=== PATIENT | male | born 1970 | race Caucasian/White ===

== ENCOUNTER 2016-04-24 09:53 | Emergency (ER) | payer OTHER ==
[2016-04-24 11:00] VITALS: RESP 18
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
[2016-04-24] MEDS ORDERED: KETOROLAC 60 MG/2 ML VIAL IM STA (11:18)
--- NOTE | 2016-04-24 11:50 | XR ---
EXAMINATION TYPE: XR thoracic spine 2V DATE OF EXAM: 04/24/2016 11:44 AM CLINICAL HISTORY: Fall injury with mid back pain. TECHNIQUE: Frontal, lateral, and swimmer's view of thoracic spine are obtained. COMPARISON: None. FINDINGS: Thoracic spine show slight levoconvex scoliotic curvature centered in the upper to midthora cic spine without evidence of acute fracture or dislocation. Vertebral body heights and disc space h eights are preserved. Fairly moderate multilevel anterior and lateral spurring is seen in the lower t horacic spine. IMPRESSION: No acute fracture or dislocation is seen in the thoracic spine.
--- NOTE | 2016-04-24 11:53 | XR ---
EXAMINATION TYPE: XR ribs RT w pa chest xray DATE OF EXAM: 04/24/2016 11:44 AM CLINICAL HISTORY: Slip and fall injury with chest and right-sided rib pain. TECHNIQUE: Single frontal view of the chest is obtained. A frontal and oblique images of the right-si ded ribs are acquired. COMPARISON: Prior chest x-ray June 21, 2014 FINDINGS: There is new left basilar linear atelectasis. Right lung remains clear. No pleural effusi on or pneumothorax seen bilaterally The cardiac silhouette size is upper limits of normal on current study. The osseous structures are intact. Dedicated images of the right-sided ribs show no acute displaced fracture. Overlying soft tissue is u nremarkable. IMPRESSION: 1. No acute pulmonary process. 2. No acute displaced right-sided rib fractures are seen.
--- NOTE | 2016-04-24 12:55 | CT ---
EXAMINATION TYPE: CT thoracic spine wo con DATE OF EXAM: 04/24/2016 12:35 PM COMPARISON: Radiograph same day HISTORY: 45-year-old male complains of back pain post fall. TECHNIQUE: Contiguous axial scanning of the thoracic spine without IV contrast. Coronal and sagittal reconstructions performed. CT DLP: 1948.5 mGycm Automated exposure control for dose reduction was used. FINDINGS: Calcified granuloma posterior left lung base from prior granulomatous disease. There is moderate endplate spondylosis in the lower thoracic spine with associated moderate degenerat italo disc disease. Vertebral body heights are preserved and alignment is maintained. No acute fracture of the thoracic spine. No evidence of large focal disc herniation seen. Changes appear to result in moderate to severe neuroforaminal stenoses on both sides at T7-T8 and T8- T9, sagittal image 20 on the right and images 29 and 30 on the left. IMPRESSION: 1. MODERATE DEGENERATIVE DISC DISEASE LOWER THORACIC SPINE WITH ASSOCIATED MODERATE ENDPLATE SPONDYLO SIS. 2. THERE APPEARS TO BE MODERATE TO SEVERE NARROWING OF THE BILATERAL NEUROFORAMINA AT T7-T8 AND T8-T9 . 3. NO VERTEBRAL COMPRESSION COLLAPSE OR MALALIGNMENT.
[2016-04-24] MEDS ORDERED: HYDROcodone/APAP 5-325MG 1 EACH TAB PO STA (13:18)
--- NOTE | 2016-04-24 13:24 | XR ---
EXAMINATION TYPE: XR shoulder complete RT DATE OF EXAM: 04/24/2016 1:19 PM CLINICAL HISTORY: Right shoulder pain after falling and lifting injury yesterday. TECHNIQUE: Three views of the right shoulder are obtained. COMPARISON: None. FINDINGS: Transscapular view is suboptimal due to overlying artifact. There is no acute fracture/disl ocation evident in the right shoulder. The acromioclavicular and glenohumeral joint spaces appear wi thin normal limits. The visualized ribs are intact and unremarkable. IMPRESSION: There is no acute fracture or dislocation in the right shoulder.
[2016-04-24 13:51] VITALS: BP 163/84; PULSE 81; TEMP 97.7
== END 2016-04-24 13:49 | disposition home or self-care (01) ==
LOC: EC 09:53
DX: S22.31XA Fracture of one rib, right side, initial encounter for closed fracture (principal); M25.511 Pain in right shoulder; M54.9 Dorsalgia, unspecified; M47.9 Spondylosis, unspecified; M48.04 Spinal stenosis, thoracic region; M51.34 Other intervertebral disc degeneration, thoracic region; F17.200 Nicotine dependence, unspecified, uncomplicated; Z89.022 Acquired absence of left finger(s); W01.0XXA Fall on same level from slipping, tripping and stumbling without subsequent striking against object, initial encounter
CPT/HCPCS: 71101; 72070; 73030; 72128; 99284; 96372; J1885

== ENCOUNTER → 2016-12-10 | Outpatient (CLI) | payer OTHER ==
[2016-12-10 12:28] LABS: Basophils % (A) 1 %; CH 32.8; CHCM 35.6; Eosinophils # (A) 0.1 k/uL (0-0.7); Eosinophils % (A) 1 %; HCT 46.1 % (39.0-53.0); HDW 2.53; HGB 16.9 gm/dL (13.0-17.5); Luc # (Auto) 0.14; Luc % (Auto) 3; Lymphocytes # (A) 1.6 k/uL (1.0-4.8); Lymphocytes % (A) 30 %; MCH 33.9 pg (25.0-35.0); MCHC 36.7 g/dL (31.0-37.0); MCV 92.4 fL (80.0-100.0); Mean Platelet Volume 7.2; Monocytes # (A) 0.5 k/uL (0-1.0); Monocytes % (A) 8 %; Neutrophils # (A) 3.1 k/uL (1.3-7.7); Neutrophils % (A) 57 %; RBC 4.99 m/uL (4.30-5.90); RDW 12.2 % (11.5-15.5); WBC 5.4 k/uL (3.8-10.6); WBC (Perox) 5.28
[2016-12-10 12:40] LABS: Bilirubin, Delta 0.4 mg/dL (0.0-0.2); Total Bilirubin 1.3 mg/dL (0.2-1.3); Total Protein 7.7 g/dL (6.3-8.2)
[2016-12-11 15:36] LABS: LOG HCV IU/mL 6.53 (<1.08)
== END | disposition home or self-care (01) ==
LOC: LABWHC1 11:37
PROVIDERS: ATTEND Physician Assistant
DX: B18.2 Chronic viral hepatitis C (principal)
CPT/HCPCS: 36415; 80076; 85025; 87522

== ENCOUNTER → 2017-04-15 | Outpatient (CLI) | payer OTHER ==
[2017-04-15 14:34] LABS: HCT 46.4 % (39.0-53.0); HGB 15.7 gm/dL (13.0-17.5); MCH 31.8 pg (25.0-35.0); MCHC 33.9 g/dL (31.0-37.0); Mean Platelet Volume 7.8; Platelet Count 187 k/uL (150-450); RBC 4.94 m/uL (4.30-5.90); WBC 5.1 k/uL (3.8-10.6)
[2017-04-15 14:55] LABS: Albumin 4.8 g/dL (3.5-5.0); Bilirubin, Delta 0.2 mg/dL (0.0-0.2); Bilirubin,Unconjugated 0.5 mg/dL (0.0-1.1); Total Bilirubin 0.7 mg/dL (0.2-1.3); Total Protein 7.7 g/dL (6.3-8.2)
[2017-04-17 09:37] LABS: Hepatits C Virus RNA DETECTED (Not detected)
== END | disposition home or self-care (01) ==
LOC: LABWHC1 14:08
PROVIDERS: ATTEND Physician Assistant
DX: B18.2 Chronic viral hepatitis C (principal)
CPT/HCPCS: 36415; 80076; 85027; 87522

== ENCOUNTER → 2017-04-21 | Outpatient (CLI) | payer OTHER | END | disposition home or self-care (01) | LOC: LABWHC1 09:24 | PROVIDERS: ATTEND Physician Assistant | DX: B18.2 Chronic viral hepatitis C (principal) | CPT/HCPCS: 36415; 82172; 82247; 82977; 83010; 83883; 84460 ==

== ENCOUNTER 2020-12-29 12:01 | Emergency (ER) | payer OTHER ==
[2020-12-29 12:39] VITALS: TEMP 98.3
[2020-12-29] MEDS ORDERED: MORPHINE SULFATE 4 MG/ML SYRINGE IM STA (13:13)
--- NOTE | 2020-12-29 13:47 | XR ---
EXAMINATION TYPE: XR cervical spine limited DATE OF EXAM: 12/29/2020 CLINICAL HISTORY: pain TECHNIQUE: 3 views of the cervical spine are submitted. COMPARISON: None. FINDINGS: There is satisfactory in alignment without evidence of acute fracture or dislocation. The pre-vertebral soft tissue appears within normal limits. Moderate degenerative narrowing and spondylo sis at C4-C6-7. The C1-C2 articulation is unremarkable on the open mouth view. IMPRESSION: No acute fracture or dislocation is seen in the cervical spine.
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
[2020-12-29] MEDS ORDERED: ORPHENADRINE 30 MG/ML 2 ML VIAL IM STA (14:00)
[2020-12-29] MEDS ORDERED: ACET/COD 300 MG/30 MG STARTER PACK 6 TAB BTL PO STA (14:13)
[2020-12-29 14:29] VITALS: BP 148/84; PULSE 82; RESP 18
== END 2020-12-29 14:28 | disposition home or self-care (01) ==
LOC: EC 12:01
DX: M54.2 Cervicalgia (principal); I10 Essential (primary) hypertension; K21.9 Gastro-esophageal reflux disease without esophagitis; M19.90 Unspecified osteoarthritis, unspecified site; F41.9 Anxiety disorder, unspecified; F32.9 Major depressive disorder, single episode, unspecified; F17.200 Nicotine dependence, unspecified, uncomplicated; F12.90 Cannabis use, unspecified, uncomplicated; Z86.73 Personal history of transient ischemic attack (TIA), and cerebral infarction without residual deficits
CPT/HCPCS: 99283; 96372 ×2; 72040; J2270; J2360

== ENCOUNTER 2022-07-18 18:41 | Emergency (ER) | payer OTHER ==
[2022-07-18 18:47] VITALS: RESP 16; TEMP 98
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
[2022-07-18] MEDS ORDERED: SODIUM CHLORIDE 0.9% 1,000 ML IV STA (21:11)
[2022-07-18 21:21] LABS: Basophils % (A) 0 %; Eosinophils # (A) 0.1 k/uL (0-0.7); Eosinophils % (A) 2 %; HCT 43.3 % (39.0-53.0); Lymphocytes # (A) 1.9 k/uL (1.0-4.8); Lymphocytes % (A) 37 %; MCHC 34.8 g/dL (31.0-37.0); MCV 92.1 fL (80.0-100.0); Mean Platelet Volume 7.3; Monocytes # (A) 0.3 k/uL (0-1.0); Monocytes % (A) 7 %; Neutrophils # (A) 2.6 k/uL (1.3-7.7); Neutrophils % (A) 52 %; Platelet Count 189 k/uL (150-450); RDW 12.5 % (11.5-15.5)
[2022-07-18 21:29] LABS: Sodium 136 mmol/L (137-145)
[2022-07-18 21:30] LABS: ALT 22 U/L (4-49); AST 21 U/L (17-59); African American GFR (CKD) >90 (>60 ml/min/1.73 sqM); Albumin 4.5 g/dL (3.5-5.0); Alkaline Phosphatase 80 U/L (38-126); Amylase 46 U/L (30-110); Anion Gap 8 mmol/L; Blood Urea Nitrogen 23 mg/dL (9-20); Calcium 8.9 mg/dL (8.4-10.2); Carbon Dioxide 24 mmol/L (22-30); Chloride 104 mmol/L (98-107); Glucose 87 mg/dL (74-99); Lipase 81 U/L (23-300); Non-African American GFR(CKD) >90 (>60 ml/min/1.73 sqM); Total Bilirubin 0.7 mg/dL (0.2-1.3); Total Protein 7.2 g/dL (6.3-8.2)
[2022-07-18 21:55] LABS: Appearance,Urine Clear (Clear); Bilirubin,Urine Negative (Negative); Blood,Urine Negative (Negative); Color,Urine Yellow; Glucose,Urine (UA) Negative (Negative); Ketones,Urine Negative (Negative); Leukocyte Esterase,Urine Negative (Negative); Nitrite,Urine Negative (Negative); PH, Urine 5.5 (5.0-8.0); Protein,Urine Trace (Negative); Specific Gravity,Urine 1.031 (1.001-1.035); Urobilinogen,Urine <2.0 mg/dL (<2.0)
[2022-07-18 22:01] LABS: INR 0.9 (<1.2); Partial Thromboplastin Time 25.7 sec (22.0-30.0); Prothrombin Time 10.1 sec (9.0-12.0)
--- NOTE | 2022-07-18 22:21 | CT ---
EXAMINATION TYPE: CT brain wo con DATE OF EXAM: 07/18/2022 HISTORY: dizziness CT DLP: 1166.4 mGycm. Automated Exposure Control for Dose Reduction was Utilized. TECHNIQUE: CT scan of the head is performed without contrast. COMPARISON: None. FINDINGS: There is no acute intracranial hemorrhage or midline shift identified. No mass or mass effe ct. No definite new attenuation defect. The globes are intact and the visualized sinuses are clear. IMPRESSION: No acute CT process.
--- NOTE | 2022-07-18 22:26 | CT ---
EXAMINATION TYPE: CT abdomen pelvis w con DATE OF EXAM: 07/18/2022 COMPARISON: None HISTORY: abd pain CT DLP: 2162.8 mGycm, Automated Exposure Control for Dose Reduction was Utilized. CONTRAST: CT scan of the abdomen and pelvis is performed with oral and with IV Contrast, patient inje cted with 100 mL of Isovue 300. FINDINGS: LUNG BASES: No acute process. LIVER/GB: No significant abnormality is appreciated. PANCREAS: No significant abnormality is seen. SPLEEN: No significant abnormality is seen. ADRENALS: No significant abnormality is seen. KIDNEYS: No significant abnormality is seen. BOWEL: No dilated bowel loops or inflammatory change. Appendix is normal. Diverticulosis noted. Colon ic stool volume within normal limits. PERITONEAL CAVITY: No fluid or pneumoperitoneum. PELVIC VISCERA: No gross abnormality seen. LYMPH NODES: No greater than 1cm abdominal or pelvic lymph nodes are appreciated. OSSEOUS STRUCTURES: No significant abnormality is seen. OTHER: No significant additional abnormality is seen. IMPRESSION: No significant acute finding is seen to account for patient's clinical symptoms.
[2022-07-18 22:55] VITALS: BP 129/81; PULSE 64
[2022-07-18] MEDS ORDERED: MORPHINE SULFATE 4 MG/ML SYRINGE IVP STA (23:07)
--- NOTE | 2022-07-18 23:53 | XR ---
EXAM: XR Chest, 2 Views CLINICAL HISTORY: syncope TECHNIQUE: Frontal and lateral views of the chest. COMPARISON: No relevant prior studies available. FINDINGS: Lungs: No focal consolidation. The pulmonary vasculature demonstrates no significant radiographic abnormality. Pleural space: Unremarkable. No pneumothorax. No large pleural effusion. Heart: Unremarkable. No cardiomegaly. Mediastinum: Unremarkable. No significant abnormality identified. The trachea is midline. Bones/joints: Unremarkable. IMPRESSION: No focal consolidation or acute cardiopulmonary process identified.
== END 2022-07-18 23:59 | disposition home or self-care (01) ==
LOC: EC 18:41
DX: R10.11 Right upper quadrant pain (principal); I10 Essential (primary) hypertension; F17.200 Nicotine dependence, unspecified, uncomplicated; F12.90 Cannabis use, unspecified, uncomplicated; F15.90 Other stimulant use, unspecified, uncomplicated; Z86.73 Personal history of transient ischemic attack (TIA), and cerebral infarction without residual deficits
CPT/HCPCS: 36415; 93005; 80053; 82150; 83690; 83735; 84484; 85025; 85610; 85730; 81003; 71046; 70450; 74177; 99284; 96360; Q9967

== ENCOUNTER → 2022-09-16 | Outpatient (CLI) | payer OTHER ==
--- NOTE | 2022-09-16 10:12 | NM ---
EXAMINATION TYPE: NM hepatobiliary w EF DATE OF EXAM: 09/16/2022 COMPARISON: NONE CLINICAL INDICATION: Male, 52 years old with history of R10.11; TECHNIQUE: After the intravenous administration of 5.2 mCi Tc 99m Mebrofenin hepatobiliary scintigrap hy is performed. Immediate images post injection. FINDINGS: There is satisfactory initial accumulation of tracer by the liver. The gallbladder is visualized wit hin 6 minutes. The small bowel activity is noted within 60 minutes. At one hour 8 ounces of oral en sure plus is given to mimic CCK and gallbladder ejection fraction is calculated at 42 %, in the low n ormal range. Therefore there is no scintigraphic evidence of cystic or common bile duct obstruction to suggest acute cholecystitis or gallbladder dyskinesia. IMPRESSION: Exam is within normal limits.
== END | disposition home or self-care (01) ==
LOC: RADNMMAIN 06:45
PROVIDERS: ATTEND Family Medicine
DX: R10.11 Right upper quadrant pain (principal)
CPT/HCPCS: 78226; A9537

== ENCOUNTER 2022-12-02 00:36 | Emergency (ER) | payer OTHER ==
[2022-12-02 01:01] VITALS: TEMP 97.6
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
[2022-12-02] MEDS ORDERED: HYDROmorphone 0.5 MG/0.5 ML SYRINGE IVP STA (02:30)
[2022-12-02] MEDS ORDERED: SODIUM CHLORIDE 0.9% 1,000 ML IV STA (02:30)
[2022-12-02 03:26] LABS: Basophils % (A) 0 %; Eosinophils # (A) 0.1 k/uL (0-0.7); Eosinophils % (A) 2 %; HCT 42.2 % (39.0-53.0); HGB 14.5 gm/dL (13.0-17.5); Lymphocytes # (A) 2.2 k/uL (1.0-4.8); Lymphocytes % (A) 41 %; MCH 32.6 pg (25.0-35.0); MCHC 34.3 g/dL (31.0-37.0); Mean Platelet Volume 7.8; Monocytes # (A) 0.2 k/uL (0-1.0); Monocytes % (A) 4 %; Neutrophils # (A) 2.6 k/uL (1.3-7.7); Neutrophils % (A) 50 %; Platelet Count 173 k/uL (150-450); RBC 4.45 m/uL (4.30-5.90); RDW 12.2 % (11.5-15.5); WBC 5.3 k/uL (3.8-10.6)
[2022-12-02 03:36] LABS: ALT 26 U/L (4-49); AST 28 U/L (17-59); African American GFR (CKD) >90 (>60 ml/min/1.73 sqM); Alkaline Phosphatase 66 U/L (38-126); Anion Gap 9 mmol/L; Blood Urea Nitrogen 17 mg/dL (9-20); Calcium 8.4 mg/dL (8.4-10.2); Carbon Dioxide 24 mmol/L (22-30); Chloride 109 mmol/L (98-107); Glucose 93 mg/dL (74-99); Non-African American GFR(CKD) >90 (>60 ml/min/1.73 sqM); Potassium 4.4 mmol/L (3.5-5.1); Sodium 142 mmol/L (137-145); Total Bilirubin 0.4 mg/dL (0.2-1.3); Total Protein 6.8 g/dL (6.3-8.2)
[2022-12-02 03:37] LABS: INR 0.9 (<1.2); Prothrombin Time 10.1 sec (9.0-12.0)
[2022-12-02 03:43] LABS: Alcohol 232 mg/dL
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
--- NOTE | 2022-12-02 04:14 | XR ---
EXAMINATION TYPE: XR chest 1V, XR pelvis AP view, XR shoulder complete 3 views RT DATE OF EXAM: 12/02/2022 COMPARISON: NONE HISTORY: 07/18/2022 FINDINGS: CHEST: Heart is borderline in size. Aorta and pulmonary vasculature within normal limits. Mild interstitial prominence has a chronic appearance. No consolidation, pneumothorax, or pleural effusion. Right shoulder: Moderate degenerative change of the AC joint. Subacromial space is preserved. Some bony irregularity and sclerosis of the greater tuberosity may be seen with chronic rotator cuff tendinopathy. No acute fracture, subluxation, dislocation. Old healed right posterolateral sixth and seventh rib fractures. Pelvis: Mild to moderate degenerative change at the hips. The greater trochanters are excluded on the field o f view. The entire intertrochanteric region of the proximal left femur is excluded from view. SI join ts appear symmetric and intact as does the pubic symphysis. No acute fracture seen. IMPRESSION: 1. Chest: Borderline heart size. Chronic appearing changes. No definite acute process. 2. Right shoulder: Moderate AC joint OA. Bony changes relating to chronic rotator cuff tendinopathy. Old healed fractures right posterolateral sixth and seventh ribs. No acute osseous abnormality seen. 3. Pelvis: Portions of the bilateral greater trochanters and left intertrochanteric region are exclud ed from the [id number] and not assessed. No acute osseous abnormality is seen. No acute osseous in jury was identified in the patient's CT.
[2022-12-02 04:16] VITALS: BP 98/58; PULSE 64; RESP 16
[2022-12-02 04:35] LABS: Amphetamine Screen,Urine Not Detected (NotDetected); Barbiturate Screen,Urine Not Detected (NotDetected); Benzodiazepines Screen,Urine Not Detected (NotDetected); Cocaine Screen,Urine Not Detected (NotDetected); Methadone Screen, Urine Not Detected (NotDetected); Opiate Screen,Urine Not Detected (NotDetected); Oxycodone Screen, Urine Not Detected (NotDetected); Phencyclidine Screen,Urine Not Detected (NotDetected); Tricyclic Antidepressant,Urine Not Detected (NotDetected); Urn Cannabinoid Scrn Detected (NotDetected)
== END 2022-12-02 05:40 | disposition home or self-care (01) ==
LOC: EC 00:36
DX: M25.551 Pain in right hip (principal); F10.20 Alcohol dependence, uncomplicated; I10 Essential (primary) hypertension; M19.90 Unspecified osteoarthritis, unspecified site; Z86.59 Personal history of other mental and behavioral disorders; F17.200 Nicotine dependence, unspecified, uncomplicated; F12.90 Cannabis use, unspecified, uncomplicated; Y90.7 Blood alcohol level of 200-239 mg/100 ml; Z79.899 Other long term (current) drug therapy
CPT/HCPCS: 36415; 86900; 86901; 80053; 84484; 85025; 85610; 85730; 86850; 80306; 72170; 73030; 71045; 72125; 70450; 71260; 74177; 99285; 96374; 96361; G0480; J1170; Q9967; 80320

== ENCOUNTER 2023-01-24 14:34 | Emergency (ER) | payer OTHER ==
[2023-01-24 15:01] VITALS: BP 144/94; PULSE 84; RESP 20; TEMP 97.9
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
== END 2023-01-24 22:35 | disposition home or self-care (01) ==
LOC: EC 14:34
DX: Z00.8 Encounter for other general examination (principal); M19.90 Unspecified osteoarthritis, unspecified site; I10 Essential (primary) hypertension; F17.200 Nicotine dependence, unspecified, uncomplicated; F12.90 Cannabis use, unspecified, uncomplicated; Z86.59 Personal history of other mental and behavioral disorders; Z86.73 Personal history of transient ischemic attack (TIA), and cerebral infarction without residual deficits; Z79.1 Long term (current) use of non-steroidal anti-inflammatories (NSAID); Z79.899 Other long term (current) drug therapy
CPT/HCPCS: 82075; 99285

== ENCOUNTER 2023-11-24 14:51 | Emergency (ER) | payer OTHER | END 2023-11-24 17:00 | disposition home or self-care (01) | LOC: EC 14:51 | CPT/HCPCS: 99282 ==

== ENCOUNTER → 2024-05-04 | Outpatient (CLI) | payer OTHER ==
--- NOTE | 2024-05-04 12:47 | CTL ---
EXAMINATION TYPE: CT Low Dose Lung DATE OF EXAM: 05/04/2024 11:35 AM COMPARISON: 12/02/2022 CLINICAL INDICATION: Male, 53 years old with history of Z12.2 LUNG CA SCR F17.210 CURRENT SMOKER, per monique tobacco use, History of tobacco use. Current smoker with 30 pack-year history TECHNIQUE: Low dose computed tomography scan was performed through the chest at 1 mm thick sections a nd reconstructed images in multiple planes at 1 mm and [address] DLP: 159.8 mGycm, CT CTDI: 4.0 mGy, Automated exposure control for dose reduction was used. CT DIAGNOSTIC QUALITY: Satisfactory FINDINGS: Heart normal size without pericardial effusion. Aneurysm ascending aorta at 4.4 cm versus 4.2 cm on 12/02/2022. Conventional arterial vessel branching anatomy. Borderline caliber main right and left pulmonary arteries up to 2.5 cm may reflect underlying pulmona ry arterial hypertension. Mild emphysematous change. A few calcific granulomas redemonstrated at the left lung base. Some tiny noncalcified nodules near measured 3 to 4 mm. No new suspicious pulmonary nodule is seen. There is a small hiatal hernia. Visualized upper abdomen otherwise shows a tiny hilar splenule. Bones: [facility] mid and lower thoracic spine. Old healed right-sided rib fracture deformities. IMPRESSION: 1. Lung RADS 2, benign. Evidence of prior granulomatous disease. No new suspicious pulmonary nodules. 2. COPD with mild emphysema. Recommend smoking cessation. 3. Aneurysm ascending aorta 4.4 cm versus 4.2 cm in 2022. 4. Small hiatal hernia. CT LUNG RAD AND CT CHEST RECOMMENDATION: Lung-Rad 2 Benign Appearance or Behavior: Continue annual sc reening with LDCT in 12 months. S Modifier (other clinically significant findings): S, ascending aortic aneurysm, follow-up as clinic ally indicated. [facility], , 05/04/2024 12:44 PM
== END | disposition home or self-care (01) ==
LOC: RADCTMAIN 10:57
PROVIDERS: ATTEND Family Medicine
DX: Z12.2 Encounter for screening for malignant neoplasm of respiratory organs (principal); J44.9 Chronic obstructive pulmonary disease, unspecified; J43.9 Emphysema, unspecified; F17.210 Nicotine dependence, cigarettes, uncomplicated; K44.9 Diaphragmatic hernia without obstruction or gangrene
CPT/HCPCS: 71271

== ENCOUNTER → 2024-07-09 | Outpatient (CLI) | payer OTHER ==
--- NOTE | 2024-07-13 23:48 | P.PCN ---
Date of Procedure: 07/09/24 Operative Findings: Home sleep study testing History 53-year-old male patient referred to the sleep center to be evaluated for obstructive sleep apnea. The patient was given a home sleep study. The patient has moderate diffuse bronchial asthma, alcoholism, hepatitis C, hypertension and former smoker. The patient also has a thoracic aortic aneurysm measuring 4.4 cm in size. Patient also has chronic generalized anxiety disorder. Physical findings Weight is 276 with a BMI of 34.5 Technical description The [employer] system was used to complete his home sleep study. This is a type III home sleep study evaluation. The total recording duration was 12 hours and the study started at 1:36 AM milligrams at 1:36 PM. There was a total of 7 hours and 10 minutes of flow monitoring and 7 hours and 6 minutes of oxygen saturation monitoring. Results Respiratory analysis showed a total of 7 obstructive apneas and 15 obstructive hypopneas. The resulting AHI was 3.1 Oxygenation No significant oxygen desaturations were noted. Baseline pulse ox was 98% while awake. Average pulse ox during sleep was 93% with a minimum pulse ox of 85% and the patient spent majority of sleep time above pulse ox of 89%. Cardiac summary Average heart rate was 47 with a minimum heart rate of 40 and a maximum heart of 181 Assessment No evidence of any significant sleep breathing disorder. AHI was 3.1. No evidence of any active oxygen saturations Hepatitis C Chronic alcoholism Hypertension Generalized anxiety disorder Thoracic aortic aneurysm Obesity with a BMI of 34.5 Plan No need for CPAP therapy Encourage weight loss Optimize comorbidities Maintain good sleep hygiene measures Maintain regular sleep schedule Will follow-up
== END ==
LOC: 3 N SLEEP 11:05
PROVIDERS: ATTEND Internal Medicine Critical Care Medicine
DX: G47.33 Obstructive sleep apnea (adult) (pediatric) (principal); B19.20 Unspecified viral hepatitis C without hepatic coma; E66.9 Obesity, unspecified; F41.1 Generalized anxiety disorder; I10 Essential (primary) hypertension; I71.20 Thoracic aortic aneurysm, without rupture, unspecified; F17.200 Nicotine dependence, unspecified, uncomplicated; Z68.34 Body mass index [BMI] 34.0-34.9, adult